=== PATIENT | female | born 1995 | race Caucasian/White ===

== ENCOUNTER 2017-09-27 18:22 | Emergency (ER) | payer BC, MEDICAID, SELFPAY ==
[2017-09-27 18:22] VITALS: BP 125/89; PULSE 116; RESP 14; TEMP 37.3; O2SAT 97; BMI 32.3
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
[2017-09-27] MEDS: HYDROcodone Bitartrate/Apap 5/325 Tablet PO (19:49)
[2017-09-27] MEDS: Naproxen 250 MG Tablet 500 MG PO (19:49)
[2017-09-27 20:02] VITALS: BP 122/32; PULSE 93; RESP 16; O2SAT 100
== END 2017-09-27 20:10 | disposition home or self-care (01) ==
PROVIDERS: Emergency Provider Emergency Medicine; Family Provider Physician Assistant; PCP Physician Assistant
DX: T24.111A Burn of first degree of right thigh, initial encounter (principal); T25.121A Burn of first degree of right foot, initial encounter; T24.131A Burn of first degree of right lower leg, initial encounter; X08.8XXA Exposure to other specified smoke, fire and flames, initial encounter; Y93.89 Activity, other specified; Y92.9 Unspecified place or not applicable
CPT/HCPCS: 99283

== ENCOUNTER 2017-10-31 11:21 | Emergency (ER) | payer BC, MEDICAID, SELFPAY ==
[2017-10-31 11:23] VITALS: BP 132/83; PULSE 84; RESP 17; TEMP 37.1; O2SAT 99; BMI 36.7
--- NOTE | 2017-10-31 11:46 | EKG12_ITS ---
Test Reason : DYSRHYTHMIA Blood Pressure : / mmHG Vent. Rate : 080 BPM Atrial Rate : 080 BPM P-R Int : 186 ms QRS Dur : 094 ms QT Int : 384 ms P-R-T Axes : 034 012 007 degrees QTc Int : 442 ms Normal sinus rhythm Normal ECG Confirmed by CRYSTAL MURDOCK, JEREMY ([id number]), greeting card editor ARMEN GAYTAN ([id number]) on 11/03/2017 2:49:56 PM Referred By: ADRIANNE Confirmed By:JEREMY ROJAS MD
[2017-10-31] MEDS: 0.9% Normal Saline 1,000 ML 1000 ML IV (12:10)
[2017-10-31 12:12] LABS: Absolute Lymphocyte Count 2.05 X10^3/ul (0.83-4.51); Absolute Neutrophil Count 7.1 X10^3/uL (2.0-7.7); Basophil# 0.02 X10^3/uL; Basophil% 0.2 % (0-1); Eosinophil# 0.09 X10^3/uL; Eosinophils% 0.9 % (0-5); Hematocrit 40.2 % (37-47); Hemoglobin 12.5 g/dl (12.0-15.0); Lymphocyte # 2.05 X10^3/ul (4.0); Lymphocyte % 20.6 % (19-41); Mean Corp Hgb Conc 31.1 g/gl (32-36); Mean Corpuscular Hgb 24.3 pg (27.0-32.0); Mean Corpuscular Volume 78.2 fL (81-99); Monocyte# 0.67 X10^3/uL; Monocyte% 6.7 % (0-10); Neutrophil # 7.12 X10^3/uL (2.7-7.7); Neutrophil % 71.5 % (47-70); POSITIVE COUNT NO; POSITIVE DIFFERENTIAL NO; POSITIVE MORPHOLOGY NO; Platelet Count 349 K/mm3 (150-450); RBC Distribution Width CV 14.9 % (11.6-14.6); RBC Distribution Width SD 42.8 fl (35.1-43.9); Red Blood Count 5.14 M/mm3 (4.2-5.4)
[2017-10-31 12:27] LABS: Anion Gap 6 (5-15); BUN 15 mg/dL (7-18); BUN/Creat Ratio 18.9 RATIO (10-20); Calcium,Total 9.1 mg/dL (8.5-10.1); Chloride 105 mmol/L (98-107); Creatinine, Serum 0.79 mg/dL (0.55-1.02); EST Glomerular Filtration Rate 95 mL/min (>60); Est Glom Filt Rate - Afr Amer 115 mL/min (>60); Estimated Creatinine Clearance 115.75 ml/min; Glucose 78 mg/dL (74-106); Potassium 3.7 mmol/L (3.5-5.1); Sodium Level 138 mmol/L (136-145)
--- NOTE | 2017-10-31 12:35 | ED.VISSUMM ---
- ER Visit Summary Date of Service: 10/31/17 Chief Complaint: Dizzy History of Present Illness: The patient is a 22 F reports dizziness for the past 5 weeks. She describes things spinning when she moves quickly. She had been having intermittent symptoms until yesterday and now states it seems pretty constant. She did drive herself to the emergency room. She is also complaining of some neck tightness and spasm with occasional tingling in both arms. This started about the same time as the dizziness. Past history significant for asthma. She recently had her control implant removed. Physical Examination: Vital signs are unremarkable. Head and neck examination reveals pupils to be equal and reactive. No C-spine midline tenderness. She does have reproducible muscle tenderness in the lower cervical paraspinal finals with palpable spasm across the upper shoulders. Heart is regular rate and rhythm. Lung sounds are clear. Abdomen is soft nontender. Neuro exam is unremarkable. Test Results: EKG is sinus 80 with no sign of acute ischemia. CBC and chemistry studies are normal. test is negative. Emergency Department Course and Treatment: Patient is given IV fluids here. I did explain to her that I think value would be a good medication for her as it will help control the vertigo symptoms as well as the muscle spasm. She drove herself here to the ER needs to drive herself home. She be given a prescription for a short course of Valium at home and encouraged to follow-up with her primary care physician, Dr. Gallo. Treatment Plan: [] Disposition: Discharge Impression: 1. Vertigo 2. Muscle spasm This note was generated with [employer] dictation software. It may contain incorrect words, spelling, and punctuation that were not noted in review of the chart prior to signing ED Disposition - Plan for ED Patient: Chief Complaint: Dizziness Referrals: Xin Gallo PA [Primary Care Provider] -
[2017-10-31 12:56] LABS: Pregnancy, Serum, hCG Quali. NEGATIVE Negative (0-9 Nonpreg)
--- NOTE | 2017-10-31 13:32 | ED.DEP ---
ED Disposition - Plan for ED Patient: Disposition: Home or Assisted Living Chief Complaint: Dizziness Instructions: ED Vertigo Unspecified, ED Spasm Muscle Prescriptions: Diazepam [Valium] 2 mg PO TID PRN PRN #10 tablet PRN Reason: Vertigo Referrals: Xin Gallo PA [Primary Care Provider] - As soon as possible
[2017-10-31 14:06] VITALS: BP 115/76; PULSE 97; RESP 16; O2SAT 99
== END 2017-10-31 14:07 | disposition home or self-care (01) ==
PROVIDERS: Emergency Provider Emergency Medicine; Family Provider Physician Assistant; PCP Physician Assistant
DX: R42 Dizziness and giddiness (principal); M62.838 Other muscle spasm
CPT/HCPCS: 80048; 84703; 85025; 93005; 96360; 99284; J7030; A4216

== ENCOUNTER → 2017-11-14 15:29 | Outpatient (CLI) | payer BC, MEDICAID, SELFPAY ==
[2017-11-14 17:55] LABS: hCG Titer Quant., Serum < 1 mIU/mL (<9 non-preg)
== END ==
PROVIDERS: Family Provider Physician Assistant; PCP Physician Assistant; Visit Provider Obstetrics & Gynecology
DX: N91.2 Amenorrhea, unspecified (principal)
CPT/HCPCS: 36415; 84702

== ENCOUNTER → 2018-08-05 09:59 | Outpatient (CLI) | payer BC, SELFPAY ==
--- NOTE | 2018-08-05 10:14 | US_ITS ---
STUDY: Pelvic ultrasound, complete CLINICAL: Female, 22 years old. Pelvic pain with abnormal menstrual cycles TECHNIQUE: Transabdominal imaging is performed with subsequent endovaginal imaging needed for visualization of the left ovary. COMPARISON: None. FINDINGS: Normal uterine size measuring 9.5 x 5.3 x 3.9 cm in maximal craniocaudal dimension. There are no myometrial masses. Normal endometrial thickness measuring 8 mm. There are no endometrial masses, and there is no fluid in the endometrial cavity. Normal uterine cervix. Normal right ovary, measuring 3.9 x 2.9 x 2.8 cm. There are multiple follicles measuring up to 2.2 cm. No complex ovarian masses. Normal left ovary, measuring 2.6 x 1.8 x 1.9 cm. There are multiple follicles without a dominant cyst. There is no free fluid in the pelvis. Fluid-filled bowel within the pelvis noted. Polycystic ovary disease: No. US/Pelvic (Non ) IMPRESSION: 1. No ovarian or uterine masses. No ovarian torsion. 2. Normal endometrial complex. Electronically Signed: Leonel Peralta MD at 11:22 EDT , Service support ,
--- NOTE | 2018-08-05 10:15 | US_ITS ---
STUDY: Pelvic ultrasound, complete CLINICAL: Female, 22 years old. Pelvic pain with abnormal menstrual cycles TECHNIQUE: Transabdominal imaging is performed with subsequent endovaginal imaging needed for visualization of the left ovary. COMPARISON: None. FINDINGS: Normal uterine size measuring 9.5 x 5.3 x 3.9 cm in maximal craniocaudal dimension. There are no myometrial masses. Normal endometrial thickness measuring 8 mm. There are no endometrial masses, and there is no fluid in the endometrial cavity. Normal uterine cervix. Normal right ovary, measuring 3.9 x 2.9 x 2.8 cm. There are multiple follicles measuring up to 2.2 cm. No complex ovarian masses. Normal left ovary, measuring 2.6 x 1.8 x 1.9 cm. There are multiple follicles without a dominant cyst. There is no free fluid in the pelvis. Fluid-filled bowel within the pelvis noted. Polycystic ovary disease: No. US/Transvaginal Non- IMPRESSION: 1. No ovarian or uterine masses. No ovarian torsion. 2. Normal endometrial complex. Electronically Signed: Leonel Peralta MD at 11:22 EDT , Service support ,
== END ==
PROVIDERS: Family Provider Physician Assistant; PCP Physician Assistant; Referring Provider Obstetrics & Gynecology; Visit Provider Obstetrics & Gynecology
DX: N91.1 Secondary amenorrhea (principal); R10.2 Pelvic and perineal pain
CPT/HCPCS: 76830; 76856; 93976

== ENCOUNTER → 2020-04-04 17:06 | Outpatient (CLI) | payer OTHER, BC, SELFPAY ==
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
== END ==
PROVIDERS: PCP Physician Assistant; Referring Provider Physician Assistant; Visit Provider Physician Assistant
DX: S69.92XA Unspecified injury of left wrist, hand and finger(s), initial encounter (principal)
CPT/HCPCS: 73110; 73130